=== PATIENT | female | born 1945 | race Caucasian/White ===

== ENCOUNTER 2022-06-02 06:16 | Day surgery (SDC) | payer MEDICARE ==
[~2022-06-02] VITALS: Ht 157.5 cm; Wt 55.8 kg
[~2022-06-02 06:16] MED LIST: AMLO10TA PO; BUSP5TAB3 PO; CLOB15CR4 TOP; DOCU250C96 PO; IPRA3AMP9 NEB; LOP25T PO; SIMV-42 PO; SODI1TAB2 PO; TRAZ-251 PO
[2022-06-02] MEDS ORDERED: LIDOcaine 1% 30ml preserv. free vial IJ STA (06:34)
[2022-06-02] MEDS ORDERED: CYAN10007 (06:46)
[2022-06-02 07:44] VITALS: BP 151/101
[2022-06-02] MEDS ORDERED: LIDOcaine 1%/PF 5ML 10 MG/ML VIAL ONE ×2 (07:54)
== END 2022-06-02 08:45 | disposition home or self-care (01) ==
LOC: SSTAY O 06:16
PROVIDERS: ATTEND Preventive Medicine Aerospace Medicine
DX: M71.22 Synovial cyst of popliteal space [Baker], left knee (principal); M71.21 Synovial cyst of popliteal space [Baker], right knee; Z79.899 Other long term (current) drug therapy
CPT/HCPCS: 20611; J3490; 10160; 76942

== ENCOUNTER 2024-04-09 10:53 | Day surgery (SDC) | payer MEDICARE ==
[~2024-04-09] VITALS: Ht 157.5 cm; Wt 59.0 kg
[~2024-04-09 10:53] MED LIST changes: -BUSP5TAB3 PO; +CYAN10007; -DOCU250C96 PO; -IPRA3AMP9 NEB; -LOP25T PO; -TRAZ-251 PO
[2024-04-09 11:35] VITALS: BP 162/101; PULSE 88; RESP 19
[2024-04-09] MEDS ORDERED: diphenhydrAMINE 50 mg/ml inj ONE (12:05)
[2024-04-09] MEDS ORDERED: MIDAZolam 1 MG/ML 5ML VIAL ONE (12:05)
[2024-04-09] MEDS ORDERED: fentaNYL/PF 50MCG/1 ML 2ML syringe ONE (12:05)
[2024-04-09 12:35] VITALS: BP 140/83; PULSE 78; RESP 22; O2SAT 93
[2024-04-09 12:44] VITALS: BP 152/98; PULSE 79; RESP 23; O2SAT 90
[2024-04-09 13:04] VITALS: BP 153/97; PULSE 76; RESP 18; O2SAT 96
[2024-04-09 13:14] VITALS: BP 166/85; PULSE 72; RESP 19; O2SAT 95
== END 2024-04-09 13:25 | disposition home or self-care (01) ==
LOC: GI LAB 10:53
PROVIDERS: ATTEND Internal Medicine Gastroenterology
DX: R19.7 Diarrhea, unspecified (principal); K64.8 Other hemorrhoids; K57.30 Diverticulosis of large intestine without perforation or abscess without bleeding; I10 Essential (primary) hypertension
CPT/HCPCS: 45380; A4620; G0500; J1200; J2250; J3010; J7030; Z7512; 45378; 99152